=== PATIENT | male | born 1960 | race Caucasian/White ===

== ENCOUNTER 2022-03-14 17:14 | Emergency (ER) | payer OTHER, SELFPAY ==
[2022-03-14 17:22] VITALS: BP 125/83; PULSE 71; RESP 16; TEMP 36.2; O2SAT 96; BMI 30.8
--- NOTE | 2022-03-14 17:38 | CRLHL7_ITS ---
For Patients: As a result of the Century Cures Act, medical imaging exams and procedure reports are released immediately into your electronic medical record. You may view this report before your referring provider. If you have questions, please contact your health care provider. INDICATION: Fall. TECHNIQUE: Noncontrast CT images acquired through the brain. COMPARISON: None. FINDINGS: Mild diffuse cerebral volume loss. No mass effect or midline shift. The marie-white differentiation is maintained. Small encephalomalacia within the posterolateral right frontal lobe may represent sequelae of chronic infarction or remote trauma. No acute intracranial hemorrhage or pathologic extra-axial fluid collection. Intracranial atherosclerotic calcifications. Anterior right frontal scalp hemorrhage and right periorbital soft tissue swelling. No retrobulbar hemorrhage. The calvarium is intact. Small left maxillary sinus retention cyst or polyp. The mastoid air cells are clear. IMPRESSION: 1. No acute intracranial hemorrhage or mass effect. 2. Anterior right frontal scalp hemorrhage and right periorbital soft tissue swelling. No calvarial fracture. 3. Small encephalomalacia within the posterolateral right frontal lobe may represent sequelae of chronic infarction or remote trauma. Please note that all CT scans at this facility use dose modulation, iterative reconstruction, and/or weight-based dosing when appropriate to reduce radiation dose to as low as reasonably achievable. Dictated by Vicente Haddad MD @ 03/14/2022 6:46:30 PM (Electronically Signed)
--- NOTE | 2022-03-14 17:38 | ED_ITS ---
HPI - General Adult General Time Seen by Provider: 17:39 Date Seen: 03/14/22 Chief complaint: Head Injury/Pain Stated complaint: Fall Head Injury Time Seen by Provider: 03/14/22 17:28 Source: patient, family and RN notes reviewed Mode of arrival: ambulatory Limitations: no limitations History of Present Illness HPI narrative: Patient is a 61-year-old male accompanied by his with concern of possible periorbital injury. Patient was sleeping last night when he fell out of bed. He injured his right eye. He denies any headache at this time but his alludes that he was complaining of head pain earlier. He took an rwkd-zcd-kaadyeu for pain management and is feeling better. He states he just has pain about the right eye and the nose. His nose did bleed with this injury. He notes he has had a history of nasal injury before when a branch came down and hit him on the bridge of the nose. States his nose was a bit crooked after that. He states he can breathe through his nose at baseline but admits that since the injury from the branch he has always felt a little obstructive breathing through his nose. It certainly is not worse now. Denies any double vision or blurry vision. Teeth are occluding normally. He has no neck pain, no back pain, no chest pain, no difficulty breathing. He has diabetes and does have some baseline diabetic peripheral neuropathy in his hands and feet but there is no change as far as numbness tingling. He has had no change in motor abilities, has been using his arms and legs and walking normally. He had a steven lar spell where he fell out of bed earlier this summer but did not injure himself. Reviewed with them that I would think they might want to consider getting a sleep study through their primary care provider. His states that they had recommended this through [place] to look for sleep apnea. I highly urge them to consider this. She also brought up that she worries about Parkinson's with him. His mom had Parkinson's and he has had some mild tremors at times. Reviewed with them that neurology consultation outpatient would be highly recommended for this. Patient is also known to have prior head injury with a brain bleed and was hospitalized at [facility]. They think he may have had to have some procedure done possibly a bur hole but never went on to surgery with a craniotomy. Related Data Home Medications Medication Instructions Recorded Confirmed atorvastatin 40 mg tablet mg 03/14/22 glipizide 5 mg tablet mg 03/14/22 lisinopril 5 mg tablet mg 03/14/22 metformin 1,000 mg tablet mg 03/14/22 Allergies Allergy/AdvReac Type Severity Reaction Status Date / Time No Known Drug Allergies Allergy Verified 03/14/22 17:22 Review of Systems Status of ROS: Reports: 10 or more systems reviewed and unremarkable except as noted in History and below [facility] Social History Smoking Status: Smoker, status unknown Non-prescribed substance use: denies use Exam Const: Vital Signs, click to edit/add: Vital Signs - 24 hr 03/14/22 17:22 Temperature 97.2 F L Pulse Rate [Right Pulse Oximeter] 71 Respiratory Rate 16 Blood Pressure [Ri ght Upper Arm] 125/83 Pulse Oximetry 96 Oxygen Delivery Me thod Room Air Documenting provider has reviewed patient's vital signs: yes Common nor mals: no apparent distress, average body habitus, oriented x3, no limitations, healthy appearing, alert and well nourished General appearance: cooperative, comfortable and well kempt HENMT: Common normals: normocephalic, hearing grossly normal bilaterally, external ears normal, EAC's normal, TM's normal bilaterally, moist oral mucous membranes, oropharynx normal, dentition normal and gingiva normal Head and scalp: normocephalic External ear: external ears normal External auditory canal: EAC's normal Tympanic membrane: TM's normal bilaterally Other: Has bruising and swelling around the right periorbital area. No evidence of ocular entrapment however. The swelling does extend to the nasal bridge, no open wounds. Has some dried blood along the anterior nares on the right. Slight septal deviation noted but I do not appreciate a septal hematoma. No active nasal bleeding. Eye: Common normals: PERRL, EOMs intact bilaterally, conjunctivae normal and no scleral icterus Conjunctiva: conjunctiva(e) normal Pupil: PERRL Neck & C-Spine: Common normals: full ROM (Cervical spine is nontender over bones as well as the paraspinous areas.), no lymphadenopathy, supple, no meningeal signs, no JVD, thyroid normal and no carotid bruits Thyroid: thyroid normal Resp: Common normals: normal respiratory effort, no retractions, no use of accessory muscles and clear to auscultation bilaterally Auscultation: clear to auscultation bilaterally Cardio: Common normals: no JVD, regular rate, regular rhythm, S1 normal heart sound, S2 normal heart sound, no gallops, no clicks and no murmurs Rate: regular rate Rhythm: regular rhythm Heart sounds: S1 normal and S2 normal GI: Common normals: Normal to inspection, nondistended, normoactive bowel sounds present, soft to palpation, non-tender, no hepatosplenomegaly and no masses Palpation: soft and no hepatosplenomegaly Extremity: Common normals: normal to inspection, full ROM, normal capillary refill, no joint enlargement, no clubbing, cyanosis or edema, no calf tenderness and no pedal edema Neuro: Common normals: oriented x3 Sensorium/orientation: alert Meningea l signs: no meningeal signs Speech: speech normal Gait (neuro): normal gait Psych: Appearance: well kempt Course Course Hospital Course: Reviewed that we will proceed with a noncontrast head CT and maxillofacial eric martin. They are in agreement with this plan. He has obvious facial contusion/hematoma, need to rule out periorbital fracture, nasal fracture. Reevaluation(s) Reevaluation #1: Reviewed with patient and his the CT reports. He is having no dental pain, no left maxillary sinus symptoms. Did recommend that they give the CT report to his dentist. He thinks he just saw the dentist in November or December. I do not think antibiotics are warranted as he is asymptomatic but would ask his dentist to weigh in on the CT findings of tooth 14. He will need to follow up with ENT for the nasal fracture. They will follow-up through their clinic per report. Thankfully, there is no per orbital fracture. This is all just soft tissue and hematoma, will resolve with time. Recommended sleeping more upright and icing. Time: 19:22 Vital Signs Vital signs: Initial Vital Signs Temperature 97.2 F L 03/14/22 17:22 Temperature Source Temporal Artery Scan 03/14/22 17:22 Pulse Rate 71 03/14/22 17:22 Respiratory Rate 16 03/14/22 17:22 Blood Pressure 125/83 03/14/22 17:22 Blood Pressure Mean 97 03/14/22 17:22 Blood Pressure Position Sitting 03/14/22 17:22 Pulse Oximetry 96 03/14/22 17:22 Oxygen Delivery Method 03/14/22 17:22 Vital Signs Temperature 97.2 F L 03/14/22 17:22 Pulse Rate 71 03/14/22 17:22 Respiratory Rate 16 03/14/22 17:22 Blood Pressure 125/83 03/14/22 17:22 Pulse Oximetry 96 03/14/22 17:22 Oxygen Delivery Method 03/14/22 17:22 Temperature 97.2 F L 03/14/22 17:22 Pulse Rate 71 03/14/22 17:22 Respiratory Rate 16 03/14/22 17:22 Blood Pressure 125/83 03/14/22 17:22 Pulse Oximetry 96 03/14/22 17:22 Oxygen Delivery Method 03/14/22 17:22 Medical Decision Making Imaging Data CT scan - head: Attestation: I have reviewed the pertinent imaging results. Radiologist's impression: [facility] Patient ID:?[id number] Site Patient ID:?[id number]. Site :?[id number] Study:?CT Head W/O-03/14/2022 5:56:28 PM Ordering Physician:Ismael Hernandez Final Report: INDICATION: Fall. TECHNIQUE: Noncontrast CT images acquired through the brain. COMPARISON: None. FINDINGS: Mild diffuse cerebral volume loss. No mass effect or midline shift. The marie- white differentiation is maintained. Small encephalomalacia within the posterolateral right frontal lobe may represent sequelae of chronic infarction or remote trauma. No acute intracranial hemorrhage or pathologic extra-axial fluid collection. Intracranial atherosclerotic calcifications. Anterior right frontal scalp hemorrhage and right periorbital soft tissue swelling. No retrobulbar hemorrhage. The calvarium is intact. Small left maxillary sinus retention cyst or polyp. The mastoid air cells are clear. IMPRESSION: 1. No acute intracranial hemorrhage or mass effect. 2. Anterior right frontal scalp hemorrhage and right periorbital soft tissue swelling. No calvarial fracture. 3. Small encephalomalacia within the posterolateral right frontal lobe may represent sequelae of chronic infarction or remote trauma. Please note that all CT scans at this facility use dose modulation, iterative reconstruction, and/or weight-based dosing when appropriate to reduce radiation dose to as low as reasonably achievable. Dictated by Vicente Haddad MD @ 03/14/2022 6:46:30 PM (Electronic Signature) CT- Other: Attestation: I have reviewed the pertinent imaging results. Radiologist's impression: Patient: ALINA GRAVES Facility:?[facility] Patient ID:?[id number] Site Patient ID:?[id number]. Site :?[id number] Study:?CT Facial W/O-03/14/2022 5:56:56 PM Ordering Physician:Ismael Hernandez Final Report: INDICATION: Fall. TECHNIQUE: Noncontrast CT images acquired through the facial bones. COMPARISON: CT brain 10/30/2013. FINDINGS: Extensive beam hardening artifact secondary to dental amalgam. Anterior right frontal scalp hemorrhage with edema in the right periorbital region. No retrobulbar hematoma or stranding. Fracture of the left nasal bones demonstrating mild lateral displacement (series 2, image 106). The facial bones are otherwise intact. Prominent periapical lucency involving tooth #14 associated with thinning/dehiscence of the left maxillary antral floor. Ulrl-rz-briknkta left maxillary sinus mucosal thickening. IMPRESSION: 1. Fracture of the left nasal bones demonstrating slight lateral displacement. 2. Anterior frontal scalp hemorrhage with edema in the right periorbital region. No retrobulbar hematoma or stranding. 3. Prominent periapical lucency involving tooth #14 associated with thinning/dehiscence of the left maxillary antral floor. Subb-wv-yhmymgfx left maxillary sinus mucosal thickening raises the possibility of odontogenic sinusitis. Please note that all CT scans at this facility use dose modulation, iterative reconstruction, and/or weight-based dosing when appropriate to reduce radiation dose to as low as reasonably achievable. Dictated by Vicente Haddad MD @ 03/14/2022 6:52:38 PM (Electronic Signature) Critical Care Time Critical Care Time Critical Care Time: No Discharge Plan Discharge Clinical Impression: Periorbital hematoma of right eye Fracture of nasal bone Qualifiers: Encounter type: initial encounter Fall Qualifiers: Encounter type: initial encounter Qualified Code(s): W19.XXXA - Unspecified fall, initial encounter Condition: Stable Instructions: Nasal Fracture (ED), Hematoma (ED) Additional Instructions: Ice the facial hematoma and nasal bridge until improving. Sleeping more upright can help the swelling resolve quicker. Need to get scheduled for an ENT followup next week, contact your primary clinic for assistance if need be. Do recommend talking to your dentist about tooth [address] As far as the falling out of bed during sleep, do recommend talking to your primary care provider about having a sleep study and seeing a sleep specialist. If you have further concerns about tremors and the family history of Parkinson's, have your primary care provider consider referral to Neurology. Activity Level: Activity as Tolerated Prescriptions: No Action atorvastatin 40 mg tablet Label Comments: TAKE ONE TABLET BY MOUTH ONE TIME DAILY AT BEDTIME metformin 1,000 mg tablet Label Comments: TAKE ONE TABLET BY MOUTH TWICE A DAY WITH MEALS lisinopril 5 mg tablet Label Comments: TAKE ONE TABLET BY MOUTH ONE TIME DAILY glipizide 5 mg tablet Label Comments: TAKE ONE TABLET BY MOUTH TWICE DAILY BEFORE BREAKFAST AND SUPPER Stand Alone Forms: [facility] Info Instructions
--- NOTE | 2022-03-14 17:38 | CRLHL7_ITS ---
For Patients: As a result of the Century Cures Act, medical imaging exams and procedure reports are released immediately into your electronic medical record. You may view this report before your referring provider. If you have questions, please contact your health care provider. INDICATION: Fall. TECHNIQUE: Noncontrast CT images acquired through the facial bones. COMPARISON: CT brain 10/30/2013. FINDINGS: Extensive beam hardening artifact secondary to dental amalgam. Anterior right frontal scalp hemorrhage with edema in the right periorbital region. No retrobulbar hematoma or stranding. Fracture of the left nasal bones demonstrating mild lateral displacement (series 2, image 106). The facial bones are otherwise intact. Prominent periapical lucency involving tooth #14 associated with thinning/dehiscence of the left maxillary antral floor. Yyrb-va-ezjgddov left maxillary sinus mucosal thickening. IMPRESSION: 1. Fracture of the left nasal bones demonstrating slight lateral displacement. 2. Anterior frontal scalp hemorrhage with edema in the right periorbital region. No retrobulbar hematoma or stranding. 3. Prominent periapical lucency involving tooth #14 associated with thinning/dehiscence of the left maxillary antral floor. Acah-hp-lxamabfu left maxillary sinus mucosal thickening raises the possibility of odontogenic sinusitis. Please note that all CT scans at this facility use dose modulation, iterative reconstruction, and/or weight-based dosing when appropriate to reduce radiation dose to as low as reasonably achievable. Dictated by Vicente Haddad MD @ 03/14/2022 6:52:38 PM (Electronically Signed)
== END 2022-03-14 19:33 | disposition home or self-care (01) ==
PROVIDERS: Emergency Provider Family Medicine
DX: S00.11XA Contusion of right eyelid and periocular area, initial encounter (principal); W06.XXXA Fall from bed, initial encounter; Y93.84 Activity, sleeping; Y92.013 Bedroom of single-family (private) house as the place of occurrence of the external cause; Y99.8 Other external cause status
CPT/HCPCS: 70450; 70486; 99284

== ENCOUNTER 2023-08-03 08:58 | Emergency (ER) | payer OTHER, SELFPAY ==
[2023-08-03 09:04] VITALS: BP 131/91; PULSE 97; RESP 14; TEMP 35.6; O2SAT 99; BMI 29.7
--- NOTE | 2023-08-03 09:15 | ED.GENADULT ---
HPI - General Adult General Chief complaint: Sore Throat Stated complaint: sore throat Time Seen by Provider: 08/03/23 09:12 History of Present Illness HPI narrative: This 63-year-old male comes in reporting sore throat for the past couple days. He does not have any cough or nasal congestion. He does not report any fevers. He states that there is bilateral ear pain also. Related Data Home Medications Medication Instructions Recorded Confirmed atorvastatin 40 mg tablet mg 03/14/22 04/25/23 glipizide 5 mg tablet mg 03/14/22 04/25/23 lisinopril 5 mg tablet mg 03/14/22 04/25/23 metformin 1,000 mg tablet mg 03/14/22 04/25/23 ibuprofen [Advil] PO 04/25/23 04/25/23 Previous Rx's Medication Instructions Recorded amoxicillin 875 mg-potassium 1 tab PO BID #20 tabs 04/25/23 clavulanate 125 mg tablet amoxicillin 500 mg capsule 500 mg PO TID 7 days #21 caps 08/03/23 Allergies Allergy/AdvReac Type Severity Reaction Status Date / Time No Known Drug Allergies Allergy Verified 04/25/23 12:35 Review of Systems Status of ROS: Reports: 10 or more systems reviewed and unremarkable except as noted in History and below Narrative: Constitutional: No fevers, no weight gain or loss. Eyes: No discharge. No vision changes. HENT: No congestion. Sore throat as described above. Cardiovascular: No chest pain, no palpitations. Respiratory: No shortness of breath, no wheezes, no cough. Gastrointestinal: No abdominal pain, no vomiting, no diarrhea. Genitourinary: No dysuria, no hematuria. Musculoskeletal: Normal range of motion. Skin: No rashes, no pruritis. Neurological: No dizziness, weakness, sensory change, speech change. Endo/Heme/Allergies: No bruising or bleeding. No polydipsia. Pysch: no suicidality, no anxiety, no insomnia. All other systems reviewed and are negative. [facility] Medical History (Updated 08/03/23 @ 11:45 by Antoni Rooney MD) Sinus infection ?J32.9 - Chronic sinusitis, unspecified (ICD-10) Diabetes type 2, uncontrolled Hypercholesterolemia ?E78.00 - Pure hypercholesterolemia, unspecified (ICD-10) Hypertension ?I10 - Essential (primary) hypertension (ICD-10) Social History Smoking Status: Smoker, status unknown Non-prescribed substance use: denies use Exam Narrative: Exam Narrative: Constitutional: Well-developed, well-nourished, no acute distress. HEENT: Normocephalic, atraumatic. Oropharynx shows erythema with tonsillar exudate. No unilateral swelling or sign of abscess. No trismus or muffled voice. Neck: Normal range of motion. Nontender. Supple. Heart: Regular. No murmurs. Normal rate. Intact distal pulses. Lungs: Clear to auscultation. No chest discomfort. No wheezes, rhonchi, or rales. Abdomen: Normal bowel sounds. Nontender. No rebound tenderness. Genitalia: Deferred. Back: No midline tenderness. Normal range of motion. Extremities: Normal range of motion. No injury. Skin: Intact. No rash. Warm. No erythema or pallor. Neurologic: No altered sensation. No weakness. Alert and oriented. Psychiatric: No suicidality. No anxiety or depression. No insomnia. Nursing notes and vitals signs are reviewed. Const: Vital Signs, click to edit/add: Vital Signs - 24 hr 08/03/23 09:04 Temperature 96.1 F L Pulse Rate [Pulse Oximeter] 97 Respiratory Rate 14 Blood Pressure [Ri ght Upper Arm] 131/91 H Pulse Oximetry 99 Oxygen Delivery Me thod Room Air Course Vital Signs Vital signs: Initial Vital Signs Temperature 96.1 F L 08/03/23 09:04 Temperature Source Temporal Artery Scan 08/03/23 09:04 Pulse Rate 97 08/03/23 09:04 Pulse Rhythm Regular 08/03/23 09:04 Respiratory Rate 14 08/03/23 09:04 Blood Pressure 131/91 H 08/03/23 09:04 Blood Pressure Mean 104 08/03/23 09:04 Blood Pressure Position Sitting 08/03/23 09:04 Pulse Oximetry 99 08/03/23 09:04 Oxygen Delivery Method Room Air 08/03/23 09:04 Vital Signs Temperature 96.1 F L 08/03/23 09:04 Pulse Rate 97 08/03/23 09:04 Respiratory Rate 14 08/03/23 09:04 Blood Pressure 131/91 H 08/03/23 09:04 Pulse Oximetry 99 08/03/23 09:04 Oxygen Delivery Method Room Air 08/03/23 09:04 Temperature 96.1 F L 08/03/23 09:04 Pulse Rate 97 08/03/23 09:04 Respiratory Rate 14 08/03/23 09:04 Blood Pressure 131/91 H 08/03/23 09:04 Pulse Oximetry 99 08/03/23 09:04 Oxygen Delivery Method Room Air 08/03/23 09:04 Medical Decision Making MDM Narrative Medical decision making narrative: This patient comes in reporting sore throat as described above. A nasopharyngeal swab is obtained which is negative for COVID, influenza, and RSV. At pharyngeal swab is positive for strep. The patient received an oral dose of dexamethasone 10 mg and prescription for amoxicillin. Lab Data Labs: Lab Results 08/03/23 Range/Units 09:10 SARS-CoV-2 (PCR) Negative SARS-CoV-2 (Negative) Influenza Type A (PCR) Negative PCR FLU A (Negative) Influenza Type B (PCR) Negative PCR FLU B (Negative) RSV (PCR) Negative PCR RSV (Negative) Group A Strep DNA DETECTED A (Not Detectd) Discharge Plan Discharge Clinical Impression: Acute streptococcal pharyngitis Patient Disposition: Home, Self-Care Condition: Stable Additional Instructions: Take medication as prescribed. Follow up with MD return if worsening. Prescriptions: New amoxicillin 500 mg capsule 500 mg PO TID 7 Days Qty: 21 0RF No Action ibuprofen [Advil] PO amoxicillin-pot clavulanate 875-125 mg tablet 1 tab PO BID Qty: 20 0RF atorvastatin 40 mg tablet Patient Comments: TAKE ONE TABLET BY MOUTH ONE TIME DAILY AT BEDTIME metformin 1,000 mg tablet Patient Comments: TAKE ONE TABLET BY MOUTH TWICE A DAY WITH MEALS lisinopril 5 mg tablet Patient Comments: TAKE ONE TABLET BY MOUTH ONE TIME DAILY glipizide 5 mg tablet Patient Comments: TAKE ONE TABLET BY MOUTH TWICE DAILY BEFORE BREAKFAST AND SUPPER Follow Up/Referrals: Provider,Not a Local [Primary Care Provider] - Stand Alone Forms: [employer] Info Instructions
[2023-08-03 11:00] LABS: Strep A DNA Probe* DETECTED (Not Detectd)
[2023-08-03 11:15] LABS: PCR FLU A Negative PCR FLU A (Negative); PCR FLU B Negative PCR FLU B (Negative); PCR RSV Negative PCR RSV (Negative); SARS PCR* Negative SARS-CoV-2 (Negative)
[2023-08-03 11:51] VITALS: BP 131/91; PULSE 97; RESP 14; TEMP 35.6
[2023-08-03] MEDS: dexAMETHasone 10 MG/ML inj PO (11:51)
== END 2023-08-03 11:52 | disposition home or self-care (01) ==
PROVIDERS: Emergency Provider Emergency Medicine Emergency Medical Services
DX: J02.0 Streptococcal pharyngitis (principal)
CPT/HCPCS: 87631; 87651; 99283; 99284; J1100

== ENCOUNTER 2023-08-16 07:45 | Emergency (ER) | payer OTHER, SELFPAY ==
[2023-08-16 07:50] VITALS: BP 147/89; PULSE 85; RESP 18; TEMP 36.6; O2SAT 98; BMI 30.1
--- NOTE | 2023-08-16 08:19 | ED.GENADULT ---
HPI - General Adult General Date Seen: 08/16/23 Chief complaint: Sore Throat Stated complaint: sore throat Time Seen by Provider: 08/16/23 08:02 Source: patient Mode of arrival: ambulatory Limitations: no limitations History of Present Illness HPI narrative: Is a 63-year-old male presenting to the emergency department for sore throat. She was here 13 days ago and diagnosed with strep throat. Was given a 7 day course of antibiotics. Finished the amoxicillin this past Friday is symptoms did resolve but then they returned Friday. Since then he felt like his throat is getting worse. Has not noticed any change in his voice. Does have pain with swallowing. Denies fevers, chills, shortness of breath, chest pain, weakness, numbness. No other concerns noted. Related Data Home Medications Medication Instructions Recorded Confirmed atorvastatin 40 mg tablet 40 mg 03/14/22 04/25/23 glipizide 5 mg tablet See Rx Instructions .Route .COMPLEX 03/14/22 08/16/23 lisinopril 5 mg tablet See Rx Instructions .Route .COMPLEX 03/14/22 08/16/23 metformin 1,000 mg tablet 1,000 mg 03/14/22 04/25/23 ibuprofen [Advil] PO 04/25/23 04/25/23 Previous Rx's Medication Instructions Recorded amoxicillin 875 mg-potassium 1 tab PO BID #20 tabs 04/25/23 clavulanate 125 mg tablet amoxicillin 500 mg capsule 500 mg PO TID 7 days #21 caps 08/03/23 penicillin V potassium 500 mg 500 mg PO BID 10 days #20 tabs 08/16/23 tablet Allergies Allergy/AdvReac Type Severity Reaction Status Date / Time No Known Drug Allergies Allergy Verified 04/25/23 12:35 Review of Systems Narrative: Pertinent systems reviewed and were negative unless stated in HPI PFSH PFSH Medical History Sinus infection ?J32.9 - Chronic sinusitis, unspecified (ICD-10) Diabetes type 2, uncontrolled Hypercholesterolemia ?E78.00 - Pure hypercholesterolemia, unspecified (ICD-10) Hypertension ?I10 - Essential (primary) hypertension (ICD-10) Social History Smoking Status: Smoker, status unknown Non-prescribed substance use: denies use Exam Narrative: Exam Narrative: Const: Well-nourished, Well-developed, in mild distress Eyes: PERRL, no conjunctival injection, and symmetrical lids HENT: Atraumatic external nose and ears. Moist mucous membranes. Uvula midline, tonsillar exudate and swelling with an erythemic oropharynx. No swelling noted under the tongue Neck: Symmetric, trachea midline, No thyromegaly. MSK:Extremities w/o deformity, Normal Active ROM Skin: Warm, Dry. No rashes or lesions. Neuro: Normal Muscle tone, No focal neurological deficits. Psych: Awake, Alert, & Oriented x3. Appropriate mood and affect. Const: Vital Signs, click to edit/add: Vital Signs - 24 hr 08/16/23 07:50 Temperature 97.9 F Pulse Rate [Right Pulse Oximeter] 85 Respiratory Rate 18 Blood Pressure [Ri ght Upper Arm] 147/89 H Pulse Oximetry 98 Oxygen Delivery Me thod Room Air Course Vital Signs Vital signs: Initial Vital Signs Temperature 97.9 F 08/16/23 07:50 Temperature Source Temporal Artery Scan 08/16/23 07:50 Pulse Rate 85 08/16/23 07:50 Respiratory Rate 18 08/16/23 07:50 Blood Pressure 147/89 H 08/16/23 07:50 Blood Pressure Mean 108 H 08/16/23 07:50 Blood Pressure Position Sitting 08/16/23 07:50 Pulse Oximetry 98 08/16/23 07:50 Oxygen Delivery Method Room Air 08/16/23 07:50 Vital Signs Temperature 97.9 F 08/16/23 07:50 Pulse Rate 85 08/16/23 07:50 Respiratory Rate 18 08/16/23 07:50 Blood Pressure 147/89 H 08/16/23 07:50 Pulse Oximetry 98 08/16/23 07:50 Oxygen Delivery Method Room Air 08/16/23 07:50 Temperature 97.9 F 08/16/23 07:50 Pulse Rate 85 08/16/23 07:50 Respiratory Rate 18 08/16/23 07:50 Blood Pressure 147/89 H 08/16/23 07:50 Pulse Oximetry 98 08/16/23 07:50 Oxygen Delivery Method Room Air 08/16/23 07:50 Medical Decision Making MDM Narrative Medical decision making narrative: The patient is a 63-year-old male presenting to the emergency department for sore throat. He was previously treated for strep throat and given a 7 day course. Symptoms improved quickly with antibiotics but then came back when they stop. At this time I think I will place him back on antibiotics. Do not believe is necessary to retest him for strep throat. Patient is agreeable to this plan. Will be given a dose of steroids before discharge. Patient is not showing signs of peritonsillar abscess, Pablo angina, retropharyngeal abscess or any other concerning oral pharynx or deep neck space abscesses. Imaging is not necessary Discharge Plan Discharge Clinical Impression: Acute streptococcal pharyngitis Patient Disposition: Home, Self-Care Condition: Stable Instructions: Strep Throat (DC) Additional Instructions: Take antibiotics as directed. Return to emergency department for new or worsening symptoms Prescriptions: New penicillin V potassium 500 mg tablet 500 mg PO BID 10 Days Qty: 20 0RF No Action ibuprofen [Advil] PO amoxicillin-pot clavulanate 875-125 mg tablet 1 tab PO BID Qty: 20 0RF atorvastatin 40 mg tablet 40 mg Patient Comments: TAKE ONE TABLET BY MOUTH ONE TIME DAILY AT BEDTIME metformin 1,000 mg tablet 1,000 mg Patient Comments: TAKE ONE TABLET BY MOUTH TWICE A DAY WITH MEALS lisinopril 5 mg tablet See Rx Instructions .ROUTE .COMPLEX Patient Comments: TAKE ONE TABLET BY MOUTH ONE TIME DAILY Rx Instructions: unknown dose glipizide 5 mg tablet See Rx Instructions .ROUTE .COMPLEX Patient Comments: TAKE ONE TABLET BY MOUTH TWICE DAILY BEFORE BREAKFAST AND SUPPER Rx Instructions: unknown dose amoxicillin 500 mg capsule 500 mg PO TID 7 Days Qty: 21 0RF Follow Up/Referrals: Provider,Not a Local [Primary Care Provider] - Stand Alone [facility]: [facility] Info Inst[facility]
[2023-08-16] MEDS: dexAMETHasone 2 MG TABLET 10 MG PO (08:50)
== END 2023-08-16 08:52 | disposition home or self-care (01) ==
LOC: ED 08:27
PROVIDERS: Emergency Provider Student in an Organized Health Care Education/Training Program
DX: J02.0 Streptococcal pharyngitis (principal)
CPT/HCPCS: 99282; 99283; A9270

== ENCOUNTER 2023-08-31 18:23 | Emergency (ER) | payer OTHER, SELFPAY ==
[2023-08-31 18:47] VITALS: BP 124/76; PULSE 110; RESP 22; TEMP 37.9; O2SAT 96; BMI 30.1
[2023-08-31] MEDS: ACETAMINOPHEN 500 MG TABLET 1000 MG PO (19:05)
--- NOTE | 2023-08-31 19:20 | ED.GENADULT ---
HPI - General Adult General Chief complaint: Nausea/Vomiting Stated complaint: vomiting, flu like symptoms Time Seen by Provider: 08/31/23 19:00 Source: patient Mode of arrival: ambulatory Limitations: no limitations History of Present Illness HPI narrative: 63-year-old male coming in today complaining of not feeling well. Patient states that he developed fever, body aches, vomiting starting this morning. had is sick with similar symptoms. He also been having some diarrhea. Denies rash, chest or abdominal pain. No shortness of breath and no cough. He is in the room with his who is sick also. Related Data Home Medications Medication Instructions Recorded Confirmed atorvastatin 40 mg tablet 40 mg 03/14/22 04/25/23 glipizide 5 mg tablet See Rx Instructions .Route .COMPLEX 03/14/22 08/31/23 lisinopril 5 mg tablet See Rx Instructions .Route .COMPLEX 03/14/22 08/31/23 metformin 1,000 mg tablet 1,000 mg 03/14/22 04/25/23 ibuprofen [Advil] PO 04/25/23 04/25/23 Previous Rx's Medication Instructions Recorded amoxicillin 875 mg-potassium 1 tab PO BID #20 tabs 04/25/23 clavulanate 125 mg tablet amoxicillin 500 mg capsule 500 mg PO TID 7 days #21 caps 08/03/23 penicillin V potassium 500 mg 500 mg PO BID 10 days #20 tabs 08/16/23 tablet Allergies Allergy/AdvReac Type Severity Reaction Status Date / Time No Known Drug Allergies Allergy Verified 04/25/23 12:35 Review of Systems Status of ROS: Reports: 10 or more systems reviewed and unremarkable except as noted in History and below [facility] Medical History Sinus infection ?J32.9 - Chronic sinusitis, unspecified (ICD-10) Diabetes type 2, uncontrolled Hypercholesterolemia ?E78.00 - Pure hypercholesterolemia, unspecified (ICD-10) Hypertension ?I10 - Essential (primary) hypertension (ICD-10) Social History Smoking Status: Smoker, status unknown Do you use any of these nicotine containing products: None How often do you have a drink containing alcohol: never How often do you have six or more drinks on one occasion: Never AUDIT-C Alcohol total score: 0 Non-prescribed substance use: denies use Exam Narrative: Exam Narrative: Well-nourished well-developed patient, clearly uncomfortable. Alert and oriented. Answers questions appropriately. Mood and affect are appropriate. Thoughts are goal oriented and rational. No tangential or magical thinking noted. Patient speaks in full sentences without needing to catch his breath. Patient is febrile. HEENT: Normocephalic atraumatic. Pupils are equally round reactive to light. Extraocular muscles are intact. Conjunctivae are moist without any icterus noted. Moist mucous membranes. Posterior pharynx is normal. Neck is soft without any lymphadenopathy or thyromegaly. No masses are appreciated. Cardiovascular: Heart is regular rate and rhythm S1 and S2 are present without any murmurs. Lungs: Clear to auscultation bilaterally no wheezes rhonchi or rales are appreciated. Patient takes deep breaths without any discomfort. Abdomen: Soft and nontender nondistended with normal bowel sounds. Skin: Well perfused without any obvious rashes. Const: Vital Signs, click to edit/add: Vital Signs - 24 hr 08/31/23 18:47 Temperature 100.3 F H Pulse Rate [Pulse Oximeter] 110 H Respiratory Rate 22 Blood Pressure [Ri ght Upper Arm] 124/76 Pulse Oximetry 96 Oxygen Delivery Me thod Room Air Course Course ED Course: Triple swab was obtained: This was negative. He was able to take oral Tylenol and sips of water without vomiting here today. Unfortunately his fever went up instead of down. Vital Signs Vital signs: Initial Vital Signs Temperature 100.3 F H 08/31/23 18:47 Temperature Source Temporal Artery Scan 08/31/23 18:47 Pulse Rate 110 H 08/31/23 18:47 Respiratory Rate 22 08/31/23 18:47 Blood Pressure 124/76 08/31/23 18:47 Blood Pressure Mean 92 08/31/23 18:47 Blood Pressure Position Sitting 08/31/23 18:47 Pulse Oximetry 96 08/31/23 18:47 Oxygen Delivery Method Room Air 08/31/23 18:47 Vital Signs Temperature 100.3 F H 08/31/23 18:47 Pulse Rate 110 H 08/31/23 18:47 Respiratory Rate 22 08/31/23 18:47 Blood Pressure 124/76 08/31/23 18:47 Pulse Oximetry 96 08/31/23 18:47 Oxygen Delivery Method Room Air 08/31/23 18:47 Temperature 100.3 F H 08/31/23 18:47 Pulse Rate 110 H 08/31/23 18:47 Respiratory Rate 22 08/31/23 18:47 Blood Pressure 124/76 08/31/23 18:47 Pulse Oximetry 96 08/31/23 18:47 Oxygen Delivery Method Room Air 08/31/23 18:47 Medications Administered Medications: Generic Name Dose Route Start Last Admin Trade Name Tamiko PRN Reason Stop Dose Admin Acetaminophen 1,000 mg 08/31/23 19:01 08/31/23 19:05 Acetaminophen 500 Mg Tablet PO 08/31/23 19:02 1,000 mg ONCE ONE Administration Medical Decision Making MDM Narrative Medical decision making narrative: 63-year-old male with viral gastroenteritis. We discussed symptomatic treatment reasons for follow-up. Lab Data Lab results reviewed: Yes I reviewed the patient's lab results Labs: Lab Results 08/31/23 Range/Units Unknown SARS-CoV-2 (PCR) Negative SARS-CoV-2 (Negative) Influenza Type A (PCR) Negative PCR FLU A (Negative) Influenza Type B (PCR) Negative PCR FLU B (Negative) RSV (PCR) Negative PCR RSV (Negative) Discharge Plan Discharge Clinical Impression: Gastroenteritis Patient Disposition: Home, Self-Care Condition: Stable Additional Instructions: You will be sick for several days. Recommend taking small sips of water or Gatorade frequently throughout the day. Rest as much as you need to. Recommend ibuprofen as soon as you get home. Recommend 600 mg up to 3 times a day. Prescriptions: No Action ibuprofen [Advil] PO amoxicillin-pot clavulanate 875-125 mg tablet 1 tab PO BID Qty: 20 0RF atorvastatin 40 mg tablet 40 mg Patient Comments: TAKE ONE TABLET BY MOUTH ONE TIME DAILY AT BEDTIME metformin 1,000 mg tablet 1,000 mg Patient Comments: TAKE ONE TABLET BY MOUTH TWICE A DAY WITH MEALS lisinopril 5 mg tablet See Rx Instructions .ROUTE .COMPLEX Patient Comments: TAKE ONE TABLET BY MOUTH ONE TIME DAILY Rx Instructions: unknown dose glipizide 5 mg tablet See Rx Instructions .ROUTE .COMPLEX Patient Comments: TAKE ONE TABLET BY MOUTH TWICE DAILY BEFORE BREAKFAST AND SUPPER Rx Instructions: unknown dose amoxicillin 500 mg capsule 500 mg PO TID 7 Days Qty: 21 0RF penicillin V potassium 500 mg tablet 500 mg PO BID 10 Days Qty: 20 0RF Follow Up/Referrals: Provider,Not a Local [Primary Care Provider] - Stand Alone Forms: [employer] Info Instructions
[2023-08-31 19:36] LABS: PCR FLU A Negative PCR FLU A (Negative); PCR FLU B Negative PCR FLU B (Negative); PCR RSV Negative PCR RSV (Negative); SARS PCR* Negative SARS-CoV-2 (Negative)
[2023-08-31 19:55] VITALS: BP 112/86; PULSE 103; RESP 18; TEMP 38.4; O2SAT 95
== END 2023-08-31 20:06 | disposition home or self-care (01) ==
PROVIDERS: Emergency Provider Family Medicine
DX: K52.9 Noninfective gastroenteritis and colitis, unspecified (principal)
CPT/HCPCS: 87631; 99282; 99283; 99284; A9270

== ENCOUNTER 2023-11-27 18:17 | Emergency (ER) | payer OTHER, SELFPAY ==
[2023-11-27 18:28] VITALS: BP 163/93; PULSE 79; RESP 18; TEMP 36.2; O2SAT 98; BMI 30.1
--- NOTE | 2023-11-27 18:39 | CRLHL7_ITS ---
For Patients: As a result of the Century Cures Act, medical imaging exams and procedure reports are released immediately into your electronic medical record. You may view this report before your referring provider. If you have questions, please contact your health care provider. INDICATION: Dyspnea. TECHNIQUE: Chest radiographs, 2 views. COMPARISON: None. FINDINGS: Cardiovascular/Mediastinum: Normal heart size. Unremarkable. Lungs: No focal consolidation. Airways: Trachea remains midline. Pleura: No pleural effusions or pneumothorax. Bones: No acute osseous abnormalities. Upper abdomen: Unremarkable. IMPRESSION: No acute cardiopulmonary process. Dictated by Ash Sevilla MD @ 11/27/2023 7:31:56 PM (Electronically Signed)
--- NOTE | 2023-11-27 18:39 | ED.GENADULT ---
HPI - General Adult General Date Seen: 11/27/23 Chief complaint: Cough Stated complaint: body aches, cough Time Seen by Provider: 11/27/23 18:25 Source: patient, RN notes reviewed and old records reviewed Mode of arrival: ambulatory Limitations: no limitations History of Present Illness HPI narrative: Patient is a 63-year-old male here for evaluation of ongoing cough and congestion. He has been sick for about 6 days with nasal congestion, cough, fatigue, aches. No fever that he is aware of. Seen at urgent care a couple of days ago, viral swab was negative and supportive care was recommended. He is frustrated because he isn't feeling better yet. He has not been short of breath. No vomiting or diarrhea. He does not smoke, denies history of asthma or COPD. History of hypertension, diabetes, high cholesterol. No chest pain, unusual leg pain or swelling. Related Data Home Medications ?Medication ?Instructions ?Recorded ?Confirmed atorvastatin 40 mg tablet 40 mg 03/14/22 11/25/23 glipizide 5 mg tablet See Rx Instructions .Route .COMPLEX 03/14/22 11/25/23 lisinopril 5 mg tablet See Rx Instructions .Route .COMPLEX 03/14/22 11/25/23 metformin 1,000 mg tablet 1,000 mg 03/14/22 11/25/23 ibuprofen [Advil] PO 04/25/23 11/25/23 Previous Rx's ?Medication ?Instructions ?Recorded prednisone 20 mg tablet 20 mg PO BID #10 tabs 11/27/23 Allergies Allergy/AdvReac Type Severity Reaction Status Date / Time No Known Drug Allergies Allergy Verified 11/27/23 18:30 Review of Systems Status of ROS: Reports: 10 or more systems reviewed and unremarkable except as noted in History and below [facility] Medical History Sinus infection ?J32.9 - Chronic sinusitis, unspecified (ICD-10) Diabetes type 2, uncontrolled Hypercholesterolemia ?E78.00 - Pure hypercholesterolemia, unspecified (ICD-10) Hypertension ?I10 - Essential (primary) hypertension (ICD-10) Social History Smoking Status: Smoker, status unknown Do you use any of these nicotine containing products: None How often do you have a drink containing alcohol: never How often do you have six or more drinks on one occasion: Never AUDIT-C Alcohol total score: 0 Non-prescribed substance use: denies use Exam Narrative: Exam Narrative: Vital signs as noted above. In general, an alert, well-appearing patient. Head: Normocephalic, atraumatic. Eyes: Pupils are equal reactive. Extraocular movements are full. Conjunctivae are normal. ENT: Mucous membranes are moist. Throat is normal. Nares are congested. Neck: Supple without lymphadenopathy. No stridor. Heart: Regular rate and rhythm. No murmur or rub. Lungs: Clear bilaterally. No increased work of breathing, crackles or wheezes. Extremities: Well perfused. No edema. No calf tenderness. Pulses intact. Neurologic: Patient is alert and oriented to person and place. Speech is fluent. Face is symmetric. Moves all extremities equally. Affect: Normal. Skin: Warm and dry. Well perfused. Const: Vital Signs, click to edit/add: Vital Signs - 24 hr 11/27/23 18:28 Temperature 97.2 F L Pulse Rate [Pulse Oximeter] 79 Respiratory Rate 18 Blood Pressure [Ri ght Upper Arm] 163/93 H Pulse Oximetry 98 Oxygen Delivery Me thod Room Air Documenting provider has reviewed patient's vital signs: yes Course Course ED Course: Discussed with him that I certainly think it is possible he is dealing with a viral process despite negative testing for 3 specific viruses. Will check a chest x-ray and a couple of basic labs today. His O2 sats are normal, lungs are clear. I do not see any evidence of bronchospasm at this time. Nontoxic in appearance. Chest x-ray by my review is negative, final radiology read is negative. Labs show normal white blood cell count, hemoglobin is 13.4, mild monocytosis otherwise diff is normal. Metabolic panel is normal, blood sugar is 245 however. He does have a known diagnosis of diabetes. 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 Reviewed with him that I would expect him to feel better over the next few days if this is viral, if he does not feel any better should see his primary doctor. For acute worsening, high fevers, shaking chills, shortness of breath etcetera return to the emergency department. Vital Signs Vital signs: Initial Vital Signs Temperature 97.2 F L 11/27/23 18:28 Temperature Source Temporal Artery Scan 11/27/23 18:28 Pulse Rate 79 11/27/23 18:28 Respiratory Rate 18 11/27/23 18:28 Blood Pressure 163/93 H 11/27/23 18:28 Blood Pressure Mean 116 H 11/27/23 18:28 Blood Pressure Position Sitting 11/27/23 18:28 Pulse Oximetry 98 11/27/23 18:28 Oxygen Delivery Method Room Air 11/27/23 18:28 Vital Signs Temperature 97.2 F L 11/27/23 18:28 Pulse Rate 79 11/27/23 18:28 Respiratory Rate 18 11/27/23 18:28 Blood Pressure 163/93 H 11/27/23 18:28 Pulse Oximetry 98 11/27/23 18:28 Oxygen Delivery Method Room Air 11/27/23 18:28 Temperature 97.2 F L 11/27/23 18:28 Pulse Rate 79 11/27/23 18:28 Respiratory Rate 18 11/27/23 18:28 Blood Pressure 163/93 H 11/27/23 18:28 Pulse Oximetry 98 11/27/23 18:28 Oxygen Delivery Method Room Air 11/27/23 18:28 Medical Decision Making Lab Data Labs: Lab Results 11/27/23 Range/Units 19:00 WBC 6.69 (4.50-11.00) K/uL RBC 4.58 (4.30-5.90) m/uL Hgb 13.4 L (13.5-17.5) gm/dL Hct 39.1 (37.0-53.0) % MCV 85 (80-100) fL MCH 29 (26-34) pg MCHC 34 (32-36) gm/dL RDW Coeff of Sophia 12.3 (11.5-15.5) % Plt Count 181 (140-440) K/uL Neut % (Auto) 58.4 (42.0-72.0) % Lymph % (Auto) 22.7 (20-44) % Harlan % (Auto) 13.3 H (0.0-11.0) % Eos % (Auto) 4.6 (0.0-7.0) % Baso % (Auto) 0.4 (0.0-3.0) % Neut # (Auto) 3.90 (1.7-7.0) K/uL Lymph # (Auto) 1.52 (0.90-2.90) K/uL Harlan # (Auto) 0.90 (0.00-0.90) K/UL Eos # (Auto) 0.31 (0.00-0.50) K/uL Baso # (Auto) 0.03 (0.00-0.30) K/uL Abs Immat Gran (auto) 0.04 (0.00-0.30) K/uL Imm/Tot Granulo (auto) 0.6 % Sodium 137 (135-149) mmol/L Potassium 4.1 (3.6-5.1) mmol/L Chloride 102 (96-114) mmol/L Carbon Dioxide 27 (20-32) mmol/L Anion Gap 8 (7-15) mEq/L BUN 17 (7-30) mg/dL Creatinine 0.8 (0.5-1.5) mg/dL Estimated Creat Clear 78.07 Estimated GFR 99 ml/min Glucose 245 H (60-115) mg/dL Calcium 8.7 (8.4-10.6) mg/dL Discharge Plan Discharge Clinical Impression: Acute viral syndrome Patient Disposition: Home, Self-Care Condition: Stable Instructions: Viral Syndrome (ED) Additional Instructions: I suspect that your symptoms are caused by a virus, and would expect this to last from about 7-10 days. Take steroid as prescribed. At this time, I do not see a role for antibiotics. If you are not feeling improved over the next few days, follow-up with your primary care doctor for re-evaluation. If at any time you feel acutely worse, have high fevers, shaking chills, significant difficulty breathing, etcetera, return to the emergency department for re-evaluation. Your also asked me to encourage you to take your vitamin-D supplement. Prescriptions: New prednisone 20 mg tablet 20 mg PO BID Qty: 10 0RF No Action ibuprofen [Advil] PO atorvastatin 40 mg tablet 40 mg Patient Comments: TAKE ONE TABLET BY MOUTH ONE TIME DAILY AT BEDTIME metformin 1,000 mg tablet 1,000 mg Patient Comments: TAKE ONE TABLET BY MOUTH TWICE A DAY WITH MEALS lisinopril 5 mg tablet See Rx Instructions .ROUTE .COMPLEX Patient Comments: TAKE ONE TABLET BY MOUTH ONE TIME DAILY Rx Instructions: unknown dose glipizide 5 mg tablet See Rx Instructions .ROUTE .COMPLEX Patient Comments: TAKE ONE TABLET BY MOUTH TWICE DAILY BEFORE BREAKFAST AND SUPPER Rx Instructions: unknown dose Follow Up/Referrals: Provider,Not a Local [Primary Care Provider] - Stand Alone Forms: [facility] Info Instructions
[2023-11-27 19:06] LABS: Basophils Absolute Auto 0.03 K/uL (0.00-0.30); Basophils Percent Auto 0.4 % (0.0-3.0); Eosinophils Absolute Auto 0.31 K/uL (0.00-0.50); Eosinophils Percent Auto 4.6 % (0.0-7.0); Hematocrit 39.1 % (37.0-53.0); Hemoglobin* 13.4 gm/dL (13.5-17.5); Immature Granulocytes Abs Auto 0.04 K/uL (0.00-0.30); Immature Granulocytes Pct Auto 0.6 %; Lymphocytes Absolute Auto 1.52 K/uL (0.90-2.90); Lymphocytes Percent Auto 22.7 % (20-44); Mean Corpuscular HGB Conc 34 gm/dL (32-36); Mean Corpuscular Hemoglobin 29 pg (26-34); Mean Corpuscular Volume 85 fL (80-100); Monocytes Percent Auto 13.3 % (0.0-11.0); Neutrophils Percent Auto 58.4 % (42.0-72.0); Platelet Count* 181 K/uL (140-440); RDW Coefficient of Variation % 12.3 % (11.5-15.5); Red Blood Count 4.58 m/uL (4.30-5.90); White Blood Count* 6.69 K/uL (4.50-11.00)
[2023-11-27 19:15] LABS: Slide Review Reflex No
[2023-11-27 19:19] LABS: Chloride* 102 mmol/L (96-114); Potassium* 4.1 mmol/L (3.6-5.1); Sodium* 137 mmol/L (135-149)
[2023-11-27 19:21] LABS: Creatinine* 0.8 mg/dL (0.5-1.5); Est. Creatinine Clearance* 78.07; Estimated Glomerular Filt Rate 99 ml/min
[2023-11-27 19:22] LABS: Anion Gap 8 mEq/L (7-15); Blood Urea Nitrogen* 17 mg/dL (7-30); Carbon Dioxide* 27 mmol/L (20-32); Glucose* 245 mg/dL (60-115)
[2023-11-27 19:23] LABS: Calcium* 8.7 mg/dL (8.4-10.6)
[2023-11-27 19:40] VITALS: BP 163/93; PULSE 79; RESP 18; TEMP 36.2
== END 2023-11-27 19:42 | disposition home or self-care (01) ==
PROVIDERS: Emergency Provider Emergency Medicine
DX: B34.9 Viral infection, unspecified (principal)
CPT/HCPCS: 36415; 71046; 80048; 85025; 99283; 99284